=== PATIENT | female | born 1940 | race Caucasian/White ===

== ENCOUNTER → 2016-07-22 | Outpatient (CLI) | payer MEDICARE, BC ==
--- NOTE | 2016-07-22 15:52 | CR ---
EXAMINATION: Left ankle HISTORY: Effusion COMPARISON: None TECHNIQUE: 3 views FINDINGS/IMPRESSION: There is no acute osseous abnormality, dislocation, joint effusion, or fracture identified. Moderate soft tissue swelling is noted surrounding the ankle most prominent along the m edial malleolus. The ankle mortise and talar dome appear intact.
== END ==
LOC: MW.CHORTHO 11:35
PROVIDERS: ATTEND Orthopaedic Surgery
DX: M25.472 Effusion, left ankle (principal); M17.11 Unilateral primary osteoarthritis, right knee
CPT/HCPCS: 20610; 73610-26-LT; 73610-LT; G0463; J1040

== ENCOUNTER 2023-06-18 13:59 | Emergency (ER) | payer MEDICARE, BC | END 2023-06-18 16:39 | disposition home or self-care (01) | LOC: MW.ED 13:59 | DX: S40.012A Contusion of left shoulder, initial encounter (principal); S00.83XA Contusion of other part of head, initial encounter; S20.212A Contusion of left front wall of thorax, initial encounter; S09.90XA Unspecified injury of head, initial encounter; Z75.8 Other problems related to medical facilities and other health care; W08.XXXA Fall from other furniture, initial encounter | CPT/HCPCS: 70450; 70450-26; 71101-26-LT; 71101-LT; 73030-26-LT; 73030-LT; 99283; 99284 ==

== ENCOUNTER 2023-10-02 17:15 | Observation (INO) | payer MEDICARE, BC ==
[2023-10-02] MEDS: Sodium Chloride 0.9% 1,000 ML IV STA (17:47)
[2023-10-02 17:59] LABS: BASOPHILS ABSOLUTE AUTO 0.04 K/uL (0.00-0.20); BASOPHILS PERCENT AUTO 0.5 % (0.0-1.0); EOSINOPHILS ABSOLUTE AUTO 0.05 K/uL (0.00-0.45); EOSINOPHILS PERCENT AUTO 0.6 % (0.0-6.0); HEMATOCRIT 33.9 % (37.0-47.0); IMMATURE GRAN ABSOLUTE AUTO 0.02 K/uL (0.00-0.05); IMMATURE GRAN PERCENT AUTO 0.2 % (0.0-0.4); LYMPHOCYTES ABSOLUTE AUTO 1.16 K/uL (1.00-4.80); LYMPHOCYTES PERCENT AUTO 14.2 % (24.0-44.0); MEAN CORPUSCULAR HEMOGLOBIN 33.6 pg (28.0-32.0); MEAN CORPUSCULAR HGB CONC 35.4 g/dL (32.0-36.0); MEAN PLATELET VOLUME 8.7 fL (9.4-12.3); MONOCYTES ABSOLUTE AUTO 1.18 K/uL (0.00-0.80); MONOCYTES PERCENT AUTO 14.4 % (0.0-8.0); NEUTROPHILS ABSOLUTE AUTO 5.74 K/uL (1.80-7.70); NEUTROPHILS PERCENT AUTO 70.1 % (41.0-71.0); PLATELET COUNT,PLT 324 K/uL (150-400); RED BLOOD CELL COUNT 3.57 M/uL (4.10-5.30); WHITE BLOOD CELL COUNT,WBC 8.19 K/uL (3.9-11.3)
[2023-10-02] MEDS: Ketorolac 30 MG/ML SDV IVPUSH ONE (18:00)
[2023-10-02 18:27] LABS: A/G RATIO 1.1 (0.9-1.6); BILIRUBIN TOTAL 0.4 mg/dL (0.2-1.0); CALCIUM 9.6 mg/dL (8.5-10.1); CARBON DIOXIDE,CO2 31.2 mmol/L (21.0-32.0); CREATININE 0.8 mg/dL (0.6-1.0); EST CRCL DRUG DOSING (CG) 46.01 mL/min; POTASSIUM,K 2.9 mmol/L (3.5-5.1); PROTEIN TOTAL,TP 7.5 g/dL (6.4-8.2)
[2023-10-02 18:29] LABS: LACTIC ACID 0.6 mmol/L (0.4-2.0)
[2023-10-02 18:41] LABS: CORONAVIRUS COVID-19 NAA POSITIVE (NEGATIVE); INFLUENZA A NAA NEGATIVE (NEGATIVE); INFLUENZA B NAA NEGATIVE (NEGATIVE); RESPIRATORY SYNCYTIAL VIR NAA NEGATIVE (NEGATIVE)
[2023-10-02] MEDS: Magnesium Oxide 400 MG Tab PO ONE (19:23)
[2023-10-02] MEDS: Potassium Chloride 20 MEQ Tab.ER PO ONE (19:23)
[2023-10-02] MEDS: Dexamethasone 4 MG Tab PO ONE (19:23)
[2023-10-03] MEDS ORDERED: Acetaminophen 325 MG Tab PO PRN (00:12)
[2023-10-03] MEDS: Enoxaparin 40 MG/0.4 ML Syringe SUBCUT SCH (01:32)
[2023-10-03] MEDS: Magnesium Sulfate/Water 2 GM/50 ML Premix Bag IV ONE (01:32)
[2023-10-03] MEDS: REMDESIVIR 200 MG in Sodium Chloride 0.9% 250 ML IV ONE (01:33)
[2023-10-03] MEDS: MAGNESIUM SULFATE IV ONE (01:36)
[2023-10-03] MEDS: WATER IV ONE (01:36)
[2023-10-03] MEDS: [UNRECOGNIZED DRUG - OTHER] IV ONE (01:36)
[2023-10-03 06:28] LABS: HEMATOCRIT 31.8 % (37.0-47.0); HEMOGLOBIN 11.2 g/dL (12.0-16.0); MEAN CORPUSCULAR HEMOGLOBIN 33.7 pg (28.0-32.0); MEAN CORPUSCULAR HGB CONC 35.2 g/dL (32.0-36.0); MEAN CORPUSCULAR VOLUME 95.8 fL (83.0-99.0); PLATELET COUNT,PLT 296 K/uL (150-400); RED BLOOD CELL COUNT 3.32 M/uL (4.10-5.30); WHITE BLOOD CELL COUNT,WBC 5.42 K/uL (3.9-11.3)
[2023-10-03 06:52] LABS: ALBUMIN 3.3 g/dL (3.4-5.0); BILIRUBIN TOTAL 0.2 mg/dL (0.2-1.0); CALCIUM 8.9 mg/dL (8.5-10.1); CREATININE 0.8 mg/dL (0.6-1.0); EST CRCL DRUG DOSING (CG) 46.01 mL/min; MAGNESIUM 2.2 mg/dL (1.8-2.4); POTASSIUM,K 3.5 mmol/L (3.5-5.1); PROTEIN TOTAL,TP 6.7 g/dL (6.4-8.2)
[2023-10-03] MEDS: Dexamethasone 4 MG Tab PO SCH (08:45)
[2023-10-03] MEDS: DULoxetine 30 MG Cap PO SCH (08:45)
[2023-10-03] MEDS: Aspirin 81 MG Tab.EC PO SCH (08:45)
[2023-10-03] MEDS: Hydrochlorothiazide 25 MG Tab PO SCH (08:45)
[2023-10-03] MEDS: amLODIPine 5 MG Tab PO SCH (08:45)
[2023-10-03] MEDS: Calcium Carbonate 500 MG Tablet PO SCH (08:48)
[2023-10-04] MEDS ORDERED: REMDESIVIR 100 MG in Sodium Chloride 0.9% 100 ML IV SCH (01:00)
== END 2023-10-03 13:40 | disposition home or self-care (01) ==
LOC: MW.ED 17:15 → MW.MS 20:31
PROVIDERS: ADMIT Internal Medicine; ATTEND Internal Medicine
DX: U07.1 COVID-19 (principal); J96.01 Acute respiratory failure with hypoxia; I10 Essential (primary) hypertension; Z87.891 Personal history of nicotine dependence; Z79.82 Long term (current) use of aspirin; Z79.899 Other long term (current) drug therapy
CPT/HCPCS: 0241U; 36415; 71046; 80053; 83605; 83690; 83735; 84484; 85025; 85027; 85379; 87040; 93005; 96361; 96374; 99285; A9270; J0248; J1650; J1885; J3475; J7030; J7050; J8540; 96365; 96372; 96375; G0378